=== PATIENT | female | born 1970 | race Caucasian/White ===

== ENCOUNTER 2016-05-31 21:58 | Emergency (ER) | payer OTHER ==
[~2016-05-31 21:58] MED LIST: CITA20 PO; LEVO137T2 PO; LISD50 PO; VENL75XR PO; WELL200T PO
[2016-05-31 21:59] VITALS: BP 126/74; PULSE 84; RESP 16; TEMP 98.5; O2SAT 99
[2016-05-31] MEDS ORDERED: DICL75TA PO ×2 (22:39→23:02)
--- NOTE | 2016-05-31 22:39 | PD ---
HPI Chief Complaint: Injury Time Seen by Provider: 22:35 Travel History International Travel<30 days: No Contact w/Intl Traveler<30days: No Traveled to known affect area: No History of Present Illness HPI 45-year-old white female presents emergency Department with complaints of right knee pain. She states that she fell onto her right knee at a concert yesterday. She states that she had immediate pain in the knee and left hand. The hand has improved but the knee has only gotten worse. She has difficulty bearing weight. Improvement with elevation worsened with weightbearing. Pain is mild to moderate. PFSH Past Medical History Blood Disorders: No Anxiety: Yes Depression: Yes Cancer: No Cardiovascular Problems: No Gastrointestinal Disorders: Yes (GERD) GERD: Yes Genitourinary: Yes (bladder sling following hysterectomy) Immune Disorder: No Implanted Vascular Access Dvce: No Musculoskeletal: No Neurologic: No Reproductive: No Respiratory: No Thyroid Disease: Yes (hypothyroidism) Tetanus Vaccination: > 5 Years ?: Not Tubal Ligation: Yes Past Surgical History Abdominal Surgery: Yes (LAP APPY) Appendectomy: Yes Genitourinary Surgery: Yes (?bladder sling) Gynecologic Surgery: Yes (TUBAL LIGATION 2000) Hysterectomy: Yes (partial) Other Surgery: Yes (partial hysterectomy, bladder sling) Social History Alcohol Use: Yes (occassional) Tobacco Use: No Substance Use: Yes (marijuana) Allergies-Medications (Allergen,Severity, Reaction): Coded Allergies: No Known Allergies (Unverified , 05/31/16) Reported Meds & Prescriptions Reported Meds & Active Scripts Active Diclofenac Sodium DR (Diclofenac Sodium) 75 Mg Tabdr 75 Mg PO BID Effexor-Xr (Venlafaxine HCl) 75 Mg Caper 75 Mg PO DAILY 14 Days Reported Vyvanse 50 Mg Cap (Lisdexamfetamine Dimesylate) 50 Mg Cap 50 Mg PO DAILY Celexa 20 Mg Tab (Citalopram Hydrobromide) 20 Mg Tab 20 Mg PO DAILY Levothyroxine 137 mcg (Levothyroxine Sodium) 137 Mcg Tab 137 Mcg PO DAILY Wellbutrin Sr (Bupropion Hcl) 200 Mg Tab 300 Mg PO DAILY Review of Systems Except as stated in HPI: all other systems reviewed are Neg Physical Exam Narrative GENERAL: This is a well-nourished, well-developed patient, in no apparent distress. SKIN: No rashes, ecchymoses or lesions. Warm and dry. HEAD: Atraumatic. Normocephalic. EYES: PERRL, EOMI, no discharge or injection. No scleral icterus. EARS: Clear NOSE: Nasal turbinates appear normal. THROAT: Mucosa pink and moist. Airway patent. NECK: Trachea midline. supple, moves head freely. LUNGS: Clear to auscultation. CV: Regular in rhythm. ABDOMEN: Soft nontender. EXT: No clubbing cyanosis or edema. Examination the right lower extremity reveals an abrasion over the patella. There is mild swelling. She has full extension but limited flexion due to pain. No anterior posterior draw. No medial lateral collateral ligament instability. Positive pain on meniscal testing. No pain in the hip, ankle or foot. She has intact sensation with good distal pulses. The left lower [place] is unremarkable. The left upper extremity has an area of ecchymosis to the dorsum of the hand between the first and second metacarpal. There is no bony tenderness. Remainder of the hand is unremarkable. The right upper shoulder is unremarkable. Data Data Last Documented VS Vital Signs Date Time Temp Pulse Resp B/P Pulse Ox O2 Delivery O2 Flow Rate FiO2 05/31/16 21:59 98.5 84 16 126/74 99 Room Air Orders Knee, Complete (4vws) (05/31/16 22:33) Ibuprofen (Motrin) (05/31/16 22:45) Tetanus/Diphtheria Tox Adult (Tetanus/Di (05/31/16 22:45) MDM Medical Decision Making Medical Screen Exam Complete: Yes Emergency Medical Condition: Yes Medical Record Reviewed: Yes Interpretation(s) Right knee: Negative for acute fracture. Differential Diagnosis MDM: High Differential diagnoses: Fracture, sprain, strain, dislocation, contusion, neurovascular injury Narrative Course Patient's given Motrin 800 mg by mouth. Jean-Pierre wrap and crutches. This is right knee contusion Diagnosis Primary Impression: Contusion of right knee Patient Instructions: General Instructions Departure Forms: Tests/Procedures, Work Release Special Instructions: No work 3 days. Additional Instructions: Rest. Elevation. Ice packs for the next 3 days. Jean-Pierre wrap and crutches. No weight-bearing and then progress to weight-bearing as tolerated. Medications as directed Follow-up with an orthopedist or your doctor in one week. Return to the ER if any problems Med/Other Pt SpecificInfo: Prescription(s) given Scripts Diclofenac Sodium DR 75 Mg Tabdr75 Mg PO BID #30 TAB Prov:Ayse Heller DO 05/31/[address] 75 Mg Tabdr75 Mg PO BID #20 TAB Prov:Ayse Heller DO 05/31/16 Disposition: 01 DISCHARGE HOME Condition: Stable Geovanny Mcfadden May 31, 2016 22:39
[2016-05-31] MEDS ORDERED: TETANUS/DIPHTHERIA TOXOID ADULT 0.5 ML VIAL IM ONE (22:45)
[2016-05-31] MEDS ORDERED: IBUPROFEN 800 MG TAB PO ONE (22:45)
--- NOTE | 2016-05-31 23:05 | RADRPT ---
EXAM DATE/TIME: 05/31/2016 22:53 [facility] COMPARISON: No previous studies available for comparison. INDICATIONS : Right knee pain after fall. MEDICAL HISTORY : None. SURGICAL HISTORY : None. ENCOUNTER: Initial ACUITY: 2 days PAIN SCORE: 10/10 LOCATION: Right knee. FINDINGS: Four view examination of the right knee demonstrates no evidence of fracture or dislocation. Bony mi neralization is normal. The articular surfaces are intact. Small suprapatellar effusion. CONCLUSION: Small suprapatellar effusion. No fracture. Doonvan Powers MD on May 31, 2016 at 23:02 Board Certified Radiologist. This report was verified electronically.
== END 2016-05-31 23:43 | disposition home or self-care (01) ==
LOC: NEPB 21:58
DX: S80.01XA Contusion of right knee, initial encounter (principal); K21.9 Gastro-esophageal reflux disease without esophagitis; E03.9 Hypothyroidism, unspecified; Z23 Encounter for immunization; W18.30XA Fall on same level, unspecified, initial encounter; Y99.8 Other external cause status
CPT/HCPCS: 73564; 90471; 90714